=== PATIENT | female | born 1975 | race Caucasian/White ===

== ENCOUNTER 2022-08-31 14:20 | Inpatient (IN) | payer OTHER, SELFPAY ==
[2022-08-31] VITALS (10 sets, daily range): BP systolic 168–214; BP diastolic 103–127; PULSE 58–112; RESP 16–18; TEMP 36.5–36.8; O2SAT 94–98; BMI 35.1
--- NOTE | 2022-08-31 14:59 | EKG12_ITS ---
Test Reason : SOB Blood Pressure : / mmHG Vent. Rate : 108 BPM Atrial Rate : 108 BPM P-R Int : 144 ms QRS Dur : 094 ms QT Int : 380 ms P-R-T Axes : 063 -34 097 degrees QTc Int : 509 ms Sinus tachycardia Possible Left atrial enlargement Left axis deviation Left ventricular hypertrophy ( R in aVL , Enrrique product ) T wave abnormality, consider lateral ischemia vs LVH repolarization abnormality Abnormal ECG Confirmed by ELDON WADDELL, MIKE ([id number]), metropolitan editor KIRA MCCULLOUGH ([id number]) on 09/01/2022 8:30:03 AM Referred By: Confirmed By:MIKE COLÓN MD
--- NOTE | 2022-08-31 15:04 | NURSING ---
NO OLD EKGS
--- NOTE | 2022-08-31 15:19 | EDS_ITS ---
HPI History of Present Illness Chief Complaint: Shortness of Breath Informant: patient Onset/Context/Timing Onset: Days (2-3) Context: gradual and onset Timing: Intermittent Quality: Positive for Dyspnea on exertion (for months; worse now) and Orthopnea Current Severity: Moderate Maximum Severity: Moderate Worsened by: Exertion and Lying flat Relieved by: Rest (and sitting up) Associated Symptoms Negative for cough Chest Pain: Positive for Continuous and Tightness (diffuse, nonpleuritic) Narrative Narrative: Patient has had chest tightness and some dyspnea in the last 2 or 3 days. She mostly notices it when she exerts herself, and when she lies down. She states she has had this multiple times, episodically, in the past, and associates it with allergies. She states that it feels like a tightness and may be some wheezing, however she is concerned now because it is winter and she has never had seasonal allergies in the winter, nor she been exposed to anything that she can think of lately that would cause this. She states also she has had hoarseness for the last several months, she states when that started it seemed to be seasonal allergies in the summertime, but her hoarseness has never resolved. She states she had a cold a couple weeks ago but it felt like just that, she did not seek treatment or testing anywhere. No home testing. She is unvaccinated against COVID and influenza. She denies any fevers or coughing or feeling like she is ill. She denies any recent travel out of the area. She denies any leg swelling or calf pains. No history of DVT or PE. She has no known chronic medical problems, but admits that she does not see a PCP at all and has not for years since she lives out of state in [place]. Additionally, she states she has had a pruritic red spotty rash for the past month. It is better now than it was but is still there and seems like it is taking a long time to go away. She states it was on her trunk, arms, legs, now it is mostly prominent on her abdomen where it is still pruritic but even though it is still on her legs it is not as itchy anymore. She states that she recently bought a used portable washing machine that she has been using in her apartment, and did use a new detergent and wonders if that is what was causing this. 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 [facility] Medical History (Updated 08/31/22 @ 22:[address] Lalo Mancini MD) HTN (hypertension) Medical History no medical history no medical history Home Medications cetirizine 5 mg tablet 10 mg PO DAILY PRN ALLERGIES 08/31/22 [History Last Taken 08/30/22] norgestimate 0.25 mg-ethinyl estradiol 35 mcg tablet 1 tab PO DAILY 08/31/22 [History Last Taken 08/24/22] Allergy/AdvReac Type Severity Reaction Status Date / Time No Known Allergies Allergy Verified 08/31/22 14:20 Surgical History (Updated 08/31/22 @ 17:[address] Stan Gonsalez DO) Hx of cholecystectomy Social History (Updated 08/31/22 @ 17:[address] Stan Gonsalez DO) Smoking Status: Never smoker alcohol intake: current alcohol intake frequency: holidays/special occasions only substance use type: does not use ROS ROS ED Constitutional Constitutional ED: Denies chills or fever(s) Eyes Eyes: Denies blurry vision, change in vision or diplopia ENT ENT ED: Denies ear pain, rhinorrhea or sore throat Cardiovascular Cardiovascular: Reports chest pain and orthopnea; Denies palpitations or racing heartbeat Respiratory/Chest Respiratory/Chest: Reports dyspnea on exertion and orthopnea; Denies cough Gastrointestinal Gastrointestinal: Denies abdominal pain, diarrhea, nausea or vomiting Genitourinary Genitourinary ED: Denies dysuria or hematuria Musculoskeletal Musculoskeletal: Denies back pain or neck pain Integumentary Reports rash; Denies abscess Neurologic Neurologic: Denies headache(s), paresthesias or weakness Psychiatric Psychiatric: Denies anxiety or suicidal thoughts EXAM Physical Exam Const Vital Signs: 08/31/22 14:21 08/31/22 15:19 08/31/22 15:19 Temperature 97.7 F L Temperature Source Temporal Pulse Rate 58 L Respiratory Rate 16 Respiratory Effort Short of Breath Respiratory Depth Normal Respiratory Pattern Normal Blood Pressure 214/127 H Blood Pressure Mean 156 Pulse Ox 98 95 Oxygen Delivery Method Room Air Room Air Room Air 08/31/22 15:15 08/31/22 17:02 08/31/22 17:30 Temperature 97.7 F L Temperature Source Temporal Pulse Rate 99 99 Respiratory Rate 18 18 Respiratory Effort Respiratory Depth Respiratory Pattern Blood Pressure 189/121 H 168/103 H 168/103 H Blood Pressure Mean 143 124 124 Pulse Ox 97 97 Oxygen Delivery Method Room Air Room Air Positive well nourished and well developed General Appearance ED: well developed and NAD HEENT Reports moist mucous membranes normocephalic and atraumatic Eyes PERRL and EOMs intact bilaterally Neck full ROM, no lymphadenopathy, supple, no meningeal signs and no JVD Resp normal respiratory effort and clear to auscultation bilaterally Cardio regular rate, regular rhythm and no murmurs Rate: Negative for tachycardic GI non-tender and non-distended Auscultation: normoactive bowel sounds Palpation: soft Back/Spine no CVA tenderness General Back: other FROM Extremity normal to inspection, full ROM, no calf tenderness and no pedal edema General Extremety ED: Negative for edema, pulses abnormal or tenderness General Extremity: Negative for edema or pulses abnormal Neuro oriented x3, CN's II-XII intact bilaterally and no sensory deficits noted Sensorium / Orientation: awake and alert Motor Exam: strength 5/5 throughout Psych mental status grossly normal Skin no wounds Skin Narrative: Erythematous nontender pruritic maculopapular rash with centimeter or less erythematous lesions, each is discrete and raised with a central scab, mostly present currently on entire abdomen and shins and less on forearms. MDM MDM MDM Narrative Medical decision making narrative: Her blood pressure at triage, 214/127, in addition to the nonspecific lateral EKG changes which in my interpretation are mostly consistent with LVH and strain, are concerning. Therefore, labs including a D-dimer since she could have a post-COVID pulmonary embolus and she had a cold several weeks ago and did not have an evaluation and COVID has been prevalent in this area, were obtained. Her D-dimer is abnormal, after her normal chest x-ray, this led to a CT angiography of the chest, which showed no evidence of a PE. There is a small right-sided pleural effusion noted but not large enough to explain her dyspnea. This could also be cardiac in etiology. Her troponin is slightly elevated nonspecifically, and her BNP is elevated. Her creatinine is slightly abnormal, so I also obtained a urine since we do not have a prior creatinine measurement on her, it shows a small/trace amount of protein, this could indicate a slight amount of kidney injury but I do not know what her baseline creatinine is since she does not have a PCP and has not had labs here before. Given all this I discussed with Dr. Oakley, he is in agreement with admitting the patient for further treatment and work-up. We gave her hydralazine here while we were awaiting work-up, this gradually brought her pressure down to 168/103, she is feeling okay resting here with slight improvement of symptoms. Lab Data Attestation: I reviewed the patient's lab results. Labs: Laboratory Results - last 24 hr 08/31/22 08/31/22 08/31/22 15:14 15:14 15:14 WBC 11.4 H RBC 4.31 Hgb 13.3 Hct 40.0 MCV 92.8 MCH 30.9 MCHC 33.3 RDW Std Deviation 46.6 H RDW Coeff of Brandy 13.8 Plt Count 287 MPV 9.9 Immature Gran % (Auto) 0.300 Neut % (Auto) 74.4 H Lymph % (Auto) 20.1 [place] % (Auto) 4.4 Eos % (Auto) 0.1 Baso % (Auto) 0.7 Absolute Neuts (auto) 8.5 H Absolute Lymphs (auto) 2.28 Nucleated RBC % 0 D-Dimer Quant (PE/DVT) 0.91 H* Sodium 139 Potassium 4.0 Chloride 103 Carbon Dioxide 29.0 Anion Gap 7 BUN 24 H Creatinine 1.14 H Estim Creat Clear Calc 47.73 Est GFR (MDRD) Af Amer 65 Est GFR (MDRD) Non-Af 54 L BUN/Creatinine Ratio 21.1 H Glucose 132 H Calcium 9.4 Troponin I High Sens 140 H* B-Natriuretic Peptide Urine Color Urine Clarity Urine pH Ur Specific [place] Urine Protein Urine Glucose (UA) Urine Ketones Urine Occult Blood Urine Nitrite Urine Bilirubin Urine Urobilinogen Ur Leukocyte Esterase Urine RBC Urine WBC Ur Squamous Epith Cells Urine Bacteria Urine Mucus 08/31/22 08/31/22 15:14 16:36 WBC RBC Hgb Hct MCV MCH MCHC RDW Std Deviation RDW Coeff of Brandy Plt Count MPV Immature Gran % (Auto) Neut % (Auto) Lymph % (Auto) [place] % (Auto) Eos % (Auto) Baso % (Auto) Absolute Neuts (auto) Absolute Lymphs (auto) Nucleated RBC % D-Dimer Quant (PE/DVT) Sodium Potassium Chloride Carbon Dioxide Anion Gap BUN Creatinine Estim Creat Clear Calc Est GFR (MDRD) Af Amer Est GFR (MDRD) Non-Af BUN/Creatinine Ratio Glucose Calcium Troponin I High Sens B-Natriuretic Peptide 1056.3 H Urine Color Straw Urine Clarity Clear Urine pH 7.0 Ur Specific [place] 1.010 Urine Protein 15 H Urine Glucose (UA) Normal Urine Ketones Negative Urine Occult Blood 250 H Urine Nitrite Negative Urine Bilirubin Negative Urine Urobilinogen Normal Ur Leukocyte Esterase 25 H Urine RBC 0-5 SEEN Urine WBC 0-5 SEEN Ur Squamous Epith Cells 0-5 SEEN Urine Bacteria 4+ Urine Mucus 0 SEEN Radiography Chest X-Ray - ED: 2 View, Read by ED Physician, No Acute Disease and No Infiltrates Diagnostic Testing: Clinical Impression(s) from Imaging Studies Chest X-Ray 08/31/22 15:45 IMPRESSION: No radiographic evidence of acute cardiopulmonary disease. Electronically Signed: Alfredo Richmond MD at 16:11 EST , Chest CTA 08/31/22 15:51 IMPRESSION: 1. No evidence of pulmonary embolus. 2. Small right-sided pleural effusion. Electronically Signed: Alfredo Richmond MD at 16:58 EST , Rhythm Strip Rhythm Strip: Sinus Tach Rate: 105 Ectopy: None EKG Initial EKG: Attestation: I personally reviewed and interpreted this EKG as follows: Interpretation: No Acute Injury Pattern, Sinus Tachycardia, Inverted T- Waves (laterally), Non-Specific ST Changes (mostly laterally) and - (LVH by voltage) Prior: No Prior Discharge Plan Dx/Rx/DC Orders Clinical Impression: Hypertensive urgency, Chest pain, Elevated troponin, ST segment changes on electrocardiogram, Pleural effusion on right Disposition Disposition: Acute Care Hospital [facility] Discharge Date/Time: 08/31/22 20:03
[2022-08-31 15:22] LABS: Absolute Lymphocyte Count 2.28 X10^3/uL (0.83-4.51); Absolute Neutrophil Count 8.5 X10^3/uL (2.0-7.7); Basophil# 0.08 X10^3/uL; Basophil% 0.7 % (0-1); Eosinophil# 0.01 X10^3/uL; Eosinophils% 0.1 % (0-5); Hemoglobin 13.3 g/dL (12.0-15.0); Lymphocyte # 2.28 X10^3/ul (0.83-4.51); Lymphocyte % 20.1 % (19-41); Mean Corp Hgb Conc 33.3 g/dL (32-36); Mean Corpuscular Hgb 30.9 pg (27.0-32.0); Mean Corpuscular Volume 92.8 fL (81-99); Mean Platelet Vol. 9.9 fl (6.2-12.0); Monocyte% 4.4 % (0-10); NRBC Flagged by Analyzer 0 % (0-5); Neutrophil # 8.47 X10^3/uL (2.7-7.7); Neutrophil % 74.4 % (47-70); Platelet Count 287 K/mm3 (150-450); RBC Distribution Width CV 13.8 % (11.6-14.6); RBC Distribution Width SD 46.6 fl (35.1-43.9); Red Blood Count 4.31 M/mm3 (4.2-5.4); White Blood Count 11.4 K/mm3 (4.4-11.0)
[2022-08-31] MEDS: hydrALAZINE 20 MG/ML Vial IV (15:23)
[2022-08-31 15:43] LABS: Anion Gap 7 (5-15); BUN 24 mg/dL (7-18); BUN/Creat Ratio 21.1 RATIO (10-20); Calcium,Total 9.4 mg/dL (8.5-10.1); Chloride 103 mmol/L (98-107); Creatinine, Serum 1.14 mg/dL (0.55-1.02); EST Glomerular Filtration Rate 54 mL/min (>60); Est Glom Filt Rate - Afr Amer 65 mL/min (>60); Estimated Creatinine Clearance 47.73 ml/min; Glucose 132 mg/dL (74-106); Sodium Level 139 mmol/L (136-145); Troponin-I HS 140 pg/mL (3.0-54.0)
--- NOTE | 2022-08-31 15:45 | RAD_ITS ---
EXAM: XR CHEST, 2 VIEWS CLINICAL INDICATION: chest pain/sob; no cough/fever TECHNIQUE: Frontal and lateral views of the chest. This report was created using [employer] report generation technology. COMPARISON: None. FINDINGS: LUNGS AND PLEURAL SPACES: Unremarkable. No consolidation or edema. No pneumothorax. No effusion. HEART: Unremarkable. Cardiac silhouette not enlarged. MEDIASTINUM: Central airways and mediastinal contour are unremarkable. BONES/JOINTS: Unremarkable. SOFT TISSUES: Unremarkable. RAD/Chest PA and Lateral IMPRESSION: No radiographic evidence of acute cardiopulmonary disease. Electronically Signed: Alfredo Richmond MD at 16:11 EST ,
[2022-08-31 15:51] LABS: D-Dimer Quantitative (DVT/PE) 0.91 FEU/ug/m (0.27-0.49)
--- NOTE | 2022-08-31 15:51 | CT_ITS ---
EXAM: CT ANGIOGRAPHY CHEST WITHOUT AND WITH INTRAVENOUS CONTRAST CLINICAL INDICATION: cp, sob, elevated d-dimer TECHNIQUE: Helically acquired angiography images were obtained of the chest without and with intravenous contrast. This CT exam was performed using one or more of the following dose reduction techniques: automated exposure control, adjustment of the mA and/or kV according to patient size, and/or use of iterative reconstruction technique. This report was created using [employer] report generation technology. MIP reconstructed images were created and reviewed. CONTRAST: IV 100mL [id number] COMPARISON: None. FINDINGS: PULMONARY ARTERIES: Unremarkable. Normal in caliber. No evidence of pulmonary embolism. AORTA: Unremarkable. Normal in caliber. No evidence of dissection. GREAT VESSELS OF AORTIC ARCH: Unremarkable. Normal in caliber. No evidence of dissection. LUNGS AND PLEURAL SPACES: There is a [id number] right-sided effusion. No mass. No pneumothorax. HEART: Unremarkable. Heart size is normal. No pericardial effusion. No signs of right heart strain, ratio of right ventricle to left ventricle measures less than 1. MEDIASTINUM: Unremarkable. No mediastinal or hilar adenopathy. Esophagus is unremarkable. No hiatal hernia. THYROID: Unremarkable. No thyroid lesions. BONES/JOINTS: See above. CT/CTA Chest W/WO Contrast IMPRESSION: 1. No evidence of pulmonary embolus. 2. Small right-sided pleural effusion. Electronically Signed: Alfredo Richmond MD at 16:58 EST ,
[2022-08-31 16:40] LABS: Mucous, Urine 0 SEEN /hpf (<or=2+)
[2022-08-31 16:45] LABS: Color, Urine Straw (Yellow); Glucose, Dipstick Normal (Normal); Ketone-Dipstick Negative (Negative); Leukocyte Esterase-Dipstick 25 /ul (Negative); Nitrite-Dipstick Negative (Negative); Occult Blood-Urine 250 /ul (Negative); Protein-Dipstick 15 mg/dl (Negative); Urine Bilirubin Dipstick Negative (Negative); Urine Clarity Clear (Clear); Urine Urobilinogen Normal (Normal)
[2022-08-31 17:13] LABS: Bacteria 4+ /hpf (None Seen); Red Blood Cells-Urine 0-5 SEEN /hpf (0-5); Squamous Epithelial Cells - UA 0-5 SEEN /hpf (5-10); White Blood Cells 0-5 SEEN /hpf (0-5)
--- NOTE | 2022-08-31 17:21 | NURSING ---
[facility], CHEST PAIN, ELEVATED TROP
--- NOTE | 2022-08-31 17:44 | HP.PCM.HOS_ITS ---
[facility] - General General Date of Service: 08/31/22 Chief Complaint: shortness of breath HPI Narrative CANDIDA GUZMAN, is a 47 F who presents with shortness of breath. Patient is having dyspnea on exertion over the past couple days. Denies any chest pain or chest pressure. Had been ill about 3 weeks ago and symptoms did resolve but only to get worse over the past few days. So she presented to the emergency room for evaluation. Patient was noted to have a blood pressure of 214/127 in the ED. Patient did receive hydralazine which did improve her blood pressure down to 160/103. Patient has no known history of hypertension though she does not see physicians at all regularly. Troponins were elevated in the 140s. Patient did undergo CTA of the chest that did not show any PE but did show a small right pleural effusion. [facility] Medical History no medical history no medical history Home Medications cetirizine 5 mg tablet 10 mg PO DAILY PRN ALLERGIES 08/31/22 [History Last Taken 08/30/22] norgestimate 0.25 mg-ethinyl estradiol 35 mcg tablet 1 tab PO DAILY 08/31/22 [History Last Taken 08/24/22] Allergy/AdvReac Type Severity Reaction Status Date / Time No Known Allergies Allergy Verified 08/31/22 14:20 adopted Surgical History (Updated 08/31/22 @ 17:[address] Stan Gonsalez DO) Hx of cholecystectomy Social History (Updated 08/31/22 @ 17:[address] Stan Gonsalez DO) Smoking Status: Never smoker alcohol intake: current alcohol intake frequency: holidays/special occasions only substance use type: does not use ROS ROS Narrative Occasional dizziness when she stands up but very sporadic. Patient has had a remote history of vertigo but symptoms are not similar to that. No lower extremity edema. All review of systems were negative except as mentioned above in the history of present illness and the other review of systems. Vital Signs Vital Signs Vital Signs: 08/31/22 14:21 08/31/22 15:19 08/31/22 15:19 Temperature 36.5 C L Temperature Source Temporal Pulse Rate 58 L Respiratory Rate 16 Respiratory Effort Short of Breath Respiratory Depth Normal Respiratory Pattern Normal Blood Pressure 214/127 H Blood Pressure Mean 156 Pulse Ox 98 95 Oxygen Delivery Method Room Air Room Air Room Air 08/31/22 15:15 08/31/22 17:02 08/31/22 17:30 Temperature 36.5 C L Temperature Source Temporal Pulse Rate 99 99 Respiratory Rate 18 18 Respiratory Effort Respiratory Depth Respiratory Pattern Blood Pressure 189/121 H 168/103 H 168/103 H Blood Pressure Mean 143 124 124 Pulse Ox 97 97 Oxygen Delivery Method Room Air Room Air Weight Weight: 87.09 kg Body Mass Index (BMI) 35.1 Physical Exam Const alert and no apparent distress HEENT normocephalic, head/scalp atraumatic, hearing grossly normal bilaterally and moist oral mucous membranes Resp normal respiratory effort, no retractions, no use of accessory muscles and clear to auscultation bilaterally Cardio regular rate, regular rhythm, S1 normal heart sound and S2 normal heart sound GI normal to inspection, nondistended, normoactive bowel sounds, soft to palpation, non-tender and non-distended Extremity normal to inspection Neuro oriented x3 and moves all extremities Psych affect normal Results Lab / Micro Data Attestation: I reviewed the patient's lab results. Result Diagrams: 08/31/22 15:14 08/31/22 15:14 Labs: Laboratory Results - last 24 hr 08/31/22 15:14: WBC 11.4 H, RBC 4.31, Hgb 13.3, Hct 40.0, MCV 92.8, MCH 30.9, MCHC 33.3, RDW Std Deviation 46.6 H, RDW Coeff of Brandy 13.8, Plt Count 287, MPV 9.9, Immature Gran % (Auto) 0.300, Neut % (Auto) 74.4 H, Lymph % (Auto) 20.1, [place] % (Auto) 4.4, Eos % (Auto) 0.1, Baso % (Auto) 0.7, Absolute Neuts (auto) 8.5 H, Absolute Lymphs (auto) 2.28, Nucleated RBC % 0 08/31/22 15:14: D-Dimer Quant (PE/DVT) 0.91 H* 08/31/22 15:14: Sodium 139, Potassium 4.0, Chloride 103, Carbon Dioxide 29.0, Anion Gap 7, BUN 24 H, Creatinine 1.14 H, Estim Creat Clear Calc 47.73, Est GFR (MDRD) Af Amer 65, Est GFR (MDRD) Non-Af 54 L, BUN/Creatinine Ratio 21.1 H, Glucose 132 H, Calcium 9.4, Troponin I High Sens 140 H* 08/31/22 16:36: Urine Color Straw, Urine Clarity Clear, Urine pH 7.0, Ur Specific [place] 1.010, Urine Protein 15 H, Urine Glucose (UA) Normal, Urine Ketones Negative, Urine Occult Blood 250 H, Urine Nitrite Negative, Urine Bilirubin Negative, Urine Urobilinogen Normal, Ur Leukocyte Esterase 25 H, Urine RBC 0-5 SEEN, Urine WBC 0-5 SEEN, Ur Squamous Epith Cells 0-5 SEEN, Urine Bacteria 4+, Urine Mucus 0 SEEN Rhythm Strip Rhythm Strip: Sinus Tach Rate: 105 Ectopy: None EKG Initial EKG: Attestation: I personally reviewed and interpreted this EKG as follows: Prior EKG tracings: available for review EKG Rhythm Intrepretation: Sinus Rhythm (LVH) Radiology Impression Chest X-Ray 08/31/22 15:45 IMPRESSION: No radiographic evidence of acute cardiopulmonary disease. Electronically Signed: Alfredo Richmond MD at 16:11 EST , Chest CTA 08/31/22 15:51 IMPRESSION: 1. No evidence of pulmonary embolus. 2. Small right-sided pleural effusion. Electronically Signed: Alfredo Richmond MD at 16:58 EST , Assessment & Plan Assessment/Plan (1) Hypertensive urgency: PLAN: Suspect patient has had longstanding uncontrolled blood pressure. Patient does not see physicians regularly so its only suspected Patient did receive IV hydralazine in the ED. Will initiate HCTZ and lisinopril. We will check a test before initiating lisinopril. (2) Elevated troponin: PLAN: Suspect cardiac strain due to the hypertensive urgency Cycle troponins If troponins continue to trend upwards, then would recommend anticoagulation Consult cardiology Check echocardiogram Cannot rule out the patient requiring additional cardiac evaluation including cardiac catheterization at this time. (3) ST segment changes on electrocardiogram: PLAN: Most likely due to LVH Check echo (4) Pleural effusion: PLAN: Most likely cardiac in nature Doubt infectious or cancerous No need for thoracentesis at this time but should be followed up as outpatient PLAN: Plan VTE prophylaxis with subcu Lovenox. If patient does require anticoagulation with discontinue the subcu Lovenox Charges/Coding Visit Charges Inpatient E&M: 48420 Init Hosp L3
--- NOTE | 2022-08-31 18:12 | CON.PCM.CA_ITS ---
Assessment & Plan Assessment/Plan (1) Elevated troponin: PLAN: The patient does have an elevated high-sensitivity troponin I level. This may be secondary to her hypertensive urgency. At the present time she will need continued follow-up. This will include enzyme follow-up, cardiac rhythm monitoring, and ECG follow-up. She will also have an echocardiogram to assess her left ventricular wall thickness, wall motion, and systolic function. She may, depending upon her clinical course, eventually need additional noninvasive or invasive studies to further evaluate her cardiovascular status. In the interim she will continue medical therapy as deemed appropriate. (2) Hypertensive urgency: PLAN: She has been found to have evidence of a hypertensive urgency. It is unclear as to how long her blood pressure has been elevated. Her hypertension may be the etiology of her symptoms and her objective findings. At the present time she will need continued medical management. (3) Pleural effusion: PLAN: She does have a pleural effusion. This may be secondary to the effects of hypertension on her cardiopulmonary system. She will need to continue evaluation care as noted above. It is reasonable to continue medical therapy including consideration for diuretic therapy. Addt'l Comments The patient's case has been discussed and reviewed with the patient, Dr. Mancini of the [facility] emergency department staff, and Dr. Gonsalez of the [facility] staff. This note was generated using a voice recognition system and there may be incorrect words, spelling or punctuation that were not noted when reviewing the office note prior to saving. HPI Consult Data Date of Consult: 08/31/22 HPI Narrative HPI Narrative: CANDIDA GUZMAN, is a 47 year old white female who presents for [facility] emergency department cardiovascular consultation with respect to hypertensive urgency, shortness of breath/dyspnea, abnormal cardiac enzymes, and an abnormal ECG. The patient states that during her , approximately 13 years ago, she was told her blood pressure was elevated. Following that, during follow-up visits, she states her blood pressure apparently was improved but may not have normalized but she did not require medical therapy. She states she has not followed with a physician for potentially 6 years. She does not believe she has had her blood pressure checked during that time. Thus she does not know how long her blood pressure has been elevated. She states that she felt as if she was having one of her allergy attacks . She notes when she has these events she feels that she cannot breathe comfortably. She notes that she has not been unable to lie back/supine and breathe comfortably. She also has felt like she is full around the abdomen. She has had no complaints of chest discomfort other than that associated with her sensation of dyspnea and/or her sensation of fullness in her abdomen. She denies any ongoing lower extremity peripheral pitting edema. There is been no palpitations, near-syncope, or syncope. Based upon her symptoms she presented to the emergency department for evaluation. She was noted to be markedly hypertensive. She had abnormal high- sensitivity troponin I levels. She had an ECG that demonstrated sinus rhythm with voltage criteria for LVH and ST and T wave changes potentially compatible with LVH repolarization abnormality. She underwent a chest x-ray and a chest CT scan based upon concern of the possibility of thromboembolic disease. The report states that she had no great vessel disease and no thromboembolic disease, however, on her chest CT scan she did have a right-sided pleural effusion. She has not had previous cardiovascular studies in the past. She states approximately April to May she felt as if she had one of her allergic events. She states since that time her voice has not been the same. She states that she not tested for COVID when her voice changed. She is unaware of any other medical diagnoses. She states she has not been on any prescription medication at home. [facility] Medical History no medical history Home Medications cetirizine 5 mg tablet 10 mg PO DAILY PRN ALLERGIES 08/31/22 [History Last Taken 08/30/22] norgestimate 0.25 mg-ethinyl estradiol 35 mcg tablet 1 tab PO DAILY 08/31/22 [History Last Taken 08/24/22] Allergy/AdvReac Type Severity Reaction Status Date / Time No Known Allergies Allergy Verified 08/31/22 14:20 Family History adopted Surgical History (Updated 08/31/22 @ 17:[address] Stan Gonsalez DO) Hx of cholecystectomy Social History (Updated 08/31/22 @ 17:[address] Stan Gonsalez DO) Smoking Status: Never smoker alcohol intake: current alcohol intake frequency: holidays/special occasions only substance use type: does not use ROS Constitutional Constitutional: Reports as per HPI Eyes Eyes: Reports as per HPI ENT HEENT: Reports as per HPI Cardiovascular Cardiovascular: Reports dyspnea Respiratory/Chest Respiratory/Chest: Reports dyspnea Gastrointestinal Gastrointestinal: Reports as per HPI Genitourinary Genitourinary: Reports as per HPI Musculoskeletal Musculoskeletal: Reports as per HPI Integumentary Integumentary: Reports as per HPI Neurologic Neurologic: Reports as per HPI Psychiatric Psychiatric: Reports as per HPI Physical Exam Const alert, oriented x3 and no apparent distress Orientation / Consciousness: awake HEENT normocephalic, head/scalp atraumatic, hearing grossly normal bilaterally and moist oral mucous membranes Eyes PERRL, EOMs intact bilaterally, conjunctivae normal and no scleral icterus Neck full ROM, supple and no JVD Carotids: normal carotid upstroke Resp normal respiratory effort Auscultation: breath sounds absent right Cardio regular rhythm, S1 normal heart sound and S2 normal heart sound Rate: tachycardic GI normal to inspection, nondistended, normoactive bowel sounds Extremity no pedal edema Skin no rashes or lesions noted Psych mental status grossly normal Risk Stratification Risk Stratification Applicable: Yes Age >/= 65: No >/= 3 CAD Risk Factors (HTN, HLD, DM, family hx of CAD, or current smoker): No Aspirin Use in the Past 7 Days: No Severe Angina (>/= episodes in 24 hours): No EKG ST Changes >/= 0.5mm: No Positive Cardiac Marker: Yes JACOB Risk Stratification Score: 1 JACOB % Risk: 5% Risk Procedure Criteria Type of Procedure Procedure Type: Elective Elective Risks - COVID COVID Risk Discussion: The surgeon/proceduralist and patient have discussed in detail the risk of exposure to and/or potential harm posed by the COVID-19 virus with having a surgery/procedure at this time versus the risk of delaying the surgery/procedure. It is not possible to know either the risk of delaying the surgery or procedure or chance of getting an infection with perfect accuracy, but a joint decision was made between the patient and the surgeon/proceduralist to proceed at this time with the scheduled surgery/procedure as indicated on the consent form. Objective Data Vital Signs: Vital Signs Temp Pulse Resp BP Pulse Ox O2 Del Method 97.7 F L 99 18 168/103 H 97 Room Air 08/31/22 17:30 08/31/22 17:30 08/31/22 17:30 08/31/22 17:30 08/31/22 17:30 08/31/22 17:30 Oxygen Delivery Method Room Air Weight: 192 lb Body Mass Index (BMI) 35.1 Lab / Micro Data Result Diagrams: 08/31/22 15:14 08/31/22 15:14 Labs: Laboratory Results - last 24 hr 08/31/22 15:14: WBC 11.4 H, RBC 4.31, Hgb 13.3, Hct 40.0, MCV 92.8, MCH 30.9, MCHC 33.3, RDW Std Deviation 46.6 H, RDW Coeff of Brandy 13.8, Plt Count 287, MPV 9.9, Immature Gran % (Auto) 0.300, Neut % (Auto) 74.4 H, Lymph % (Auto) 20.1, [place] % (Auto) 4.4, Eos % (Auto) 0.1, Baso % (Auto) 0.7, Absolute Neuts (auto) 8.5 H, Absolute Lymphs (auto) 2.28, Nucleated RBC % 0 08/31/22 15:14: D-Dimer Quant (PE/DVT) 0.91 H* 08/31/22 15:14: Sodium 139, Potassium 4.0, Chloride 103, Carbon Dioxide 29.0, Anion Gap 7, BUN 24 H, Creatinine 1.14 H, Estim Creat Clear Calc 47.73, Est GFR (MDRD) Af Amer 65, Est GFR (MDRD) Non-Af 54 L, BUN/Creatinine Ratio 21.1 H, Glucose 132 H, Calcium 9.4, Troponin I High Sens 140 H* 08/31/22 16:36: Urine Color Straw, Urine Clarity Clear, Urine pH 7.0, Ur Specific [place] 1.010, Urine Protein 15 H, Urine Glucose (UA) Normal, Urine Ketones Negative, Urine Occult Blood 250 H, Urine Nitrite Negative, Urine Bilirubin Negative, Urine Urobilinogen Normal, Ur Leukocyte Esterase 25 H, Urine RBC 0-5 SEEN, Urine WBC 0-5 SEEN, Ur Squamous Epith Cells 0-5 SEEN, Urine Bacteria 4+, Urine Mucus 0 SEEN Rhythm Strip Rhythm Strip: Sinus Tach Rate: 105 Ectopy: None Cardiology Labs/Tests 08/31/22 15:14: WBC 11.4 H, RBC 4.31, Hgb 13.3, Hct 40.0, MCV 92.8, MCH 30.9, M CHC 33.3, Plt Count 287, MPV 9.9, Immature Gran % (Auto) 0.300, Neut % (Auto) 74.4 H, Lymph % (Auto) 20.1, [place] % (Auto) 4.4, Eos % (Auto) 0.1, Baso % (Auto) 0.7, Absolute Neuts (auto) 8.5 H, Nucleated RBC % 0 08/31/22 15:14: D-Dimer Quant (PE/DVT) 0.91 H* 08/31/22 15:14: Sodium 139, Potassium 4.0, Chloride 103, Carbon Dioxide 29.0, Anion Gap 7, BUN 24 H, Creatinine 1.14 H, Est GFR (MDRD) Af Amer 65, Est GFR (MDRD) Non-Af 54 L, BUN/Creatinine Ratio 21.1 H, Glucose 132 H, Calcium 9.4 08/31/22 16:36: Urine Color Straw, Urine Clarity Clear, Urine pH 7.0, Ur Specific [place] 1.010, Urine Protein 15 H, Urine Glucose (UA) Normal, Urine Ketones Negative, Urine Occult Blood 250 H, Urine Nitrite Negative, Urine Bilirubin Negative, Urine Urobilinogen Normal, Ur Leukocyte Esterase 25 H, Urine RBC 0-5 SEEN, Urine WBC 0-5 SEEN Rhythm: Sinus rhythm EKG: As noted above Radiography Diagnostic Testing: Radiology Impression Chest X-Ray 08/31/22 15:45 IMPRESSION: No radiographic evidence of acute cardiopulmonary disease. Electronically Signed: Alfredo Richmond MD at 16:11 EST , Chest CTA 08/31/22 15:51 IMPRESSION: 1. No evidence of pulmonary embolus. 2. Small right-sided pleural effusion. Electronically Signed: Alfredo Richmond MD at 16:58 EST ,
--- NOTE | 2022-08-31 18:20 | ECHOCS_ITS ---
Reason For Study: HTN Procedure This was a 2D Doppler, Color Flow transthoracic echocardiogram. The study was technically difficult. Contrast injection was performed. Exam performed portable in patient room. Left Ventricle Severely dilated left ventricle. Severe global left ventricular systolic dysfunction. The estimated ejection fraction is 30 %. Diastolic function is indeterminate. Anterio-Basal: Hypokinetic. Lateral- Basal: Hypokinetic. Posterior-Basal: Hypokinetic. Infero-Basal: Hypokinetic. Basal inferoseptal: Hypokinetic. Basal anteroseptal: Hypokinetic. Mid-Anterior : Hypokinetic. Mid-Lateral : Hypokinetic. Mid-Posterior: Hypokinetic. Mid-Inferior: Hypokinetic. Mid-inferoseptal : Hypokinetic. Mid- anteroseptal : Hypokinetic. Anterior [place] : Mildly hypokinetic. Inferior [place] : Mildly hypokinetic. Lateral [place] : Mildly hypokinetic. Septal [place] : Mildly hypokinetic. Right Ventricle Normal RV size. Normal systolic function. Atria The left atrium is mildly enlarged. Normal right atrium. No doppler evidence for ASD. Mitral Valve There is no mitral annular calcification. Mild diffuse mitral valve thickening. Mild papillary muscle dysfunction of the mitral valve. Moderate (2+) mitral valve insufficiency. Tricuspid Valve Normal tricuspid valve. Trivial tricuspid valve insufficiency. Unable to estimate RV systolic pressure due to insufficient tricuspid regurgitant envelope. Aortic Valve Trisinus/trileaflet aortic valve. Normal aortic valve. Pulmonic Valve The pulmonic valve is not well visualized. Great Vessels Normal sized aortic root. Pericardium/Pleural Trivial pericardial effusion. There are no echocardiographic indications of cardiac tamponade. Medication Diluted definity 2ml given slow IV push to enhance endocardial definition. MMode/2D Measurements & Calculations LVIDd: 6.8 cm IVSd: 1.2 cm Ao root diam: 3.1 cm LVIDs: 5.9 cm LVPWd: 1.1 cm LA dimension: 4.3 cm RVDd: 3.5 cm FS: 12.5 % LAV(MOD-bp): 52.9 ml LVAd ap4: 48.1 cm2 LVAd ap2: 46.4 cm2 LAV(MOD-bp) Indexed: 28.2 ml/m2 LVLd ap4: 8.8 cm LVLd ap2: 8.9 cm LAV(MOD-sp2): 54.4 ml EDV(MOD-sp4): 216.6 ml EDV(MOD-sp2): 202.4 ml LAV(MOD-sp4): 49.4 ml EDV(sp4-el): 223.6 ml EDV(sp2-el): 204.5 ml LVAs ap4: 37.0 cm2 LVAs ap2: 38.2 cm2 LVLs ap4: 7.9 cm LVLs ap2: 8.6 cm ESV(MOD-sp4): 141.6 ml ESV(MOD-sp2): 145.2 ml ESV(sp4-el): 146.4 ml ESV(sp2-el): 143.5 ml EF(MOD-sp4): 34.6 % EF(MOD-sp2): 28.3 % EF(sp4-el): 34.5 % SV(MOD-sp4): 75.0 ml SV(MOD-sp2): 57.3 ml SV(sp4-el): 77.1 ml LA A4 area: 18.1 cm2 RA A4 area: 11.2 cm2 Time Measurements MV dec time: 0.21 sec Doppler Measurements & Calculations MV E max clark: 86.6 cm/sec Lat Peak E' Clark: 3.3 cm/sec Med Peak E' Clark: 3.7 cm/sec MV A max clark: 72.1 cm/sec E/E' lat: 26.4 E/E' med: 23.4 MV E/A: 1.2 MV V2 max: 120.4 cm/sec MV P1/2t max clark: 121.4 cm/sec Ao V2 max: 148.9 cm/sec MV max P.8 mmHg MV P1/2t: 85.2 msec Ao max P.9 mmHg MV V2 mean: 63.1 cm/sec Ao V2 mean: 101.1 cm/sec MV mean P.9 mmHg MV dec slope: 417.2 cm/sec2 Ao mean P.8 mmHg MV V2 VTI: 31.5 cm MVA(P1/2t): 2.6 cm2 Ao V2 VTI: 25.8 cm AV (velocity ratio): 0.80 LV V1 max: 124.3 cm/sec PA V2 max: 99.9 cm/sec LV V1 max P.2 mmHg LV V1 mean P.6 mmHg LV V1 mean: 88.9 cm/sec LV V1 VTI: 20.7 cm ECHO/Echo Complete W/ Contrast Interpretation Summary The study was technically difficult. Contrast injection was performed. Severely dilated left ventricle. Severe global left ventricular systolic dysfunction. The estimated ejection fraction is 30 %. The left atrium is mildly enlarged. Mild diffuse mitral valve thickening. Mild papillary muscle dysfunction of the mitral valve. Moderate (2+) mitral valve insufficiency. Trivial tricuspid valve insufficiency. Trivial pericardial effusion. There are no echocardiographic indications of cardiac tamponade. Diastolic function is indeterminate. Comment: 2D echocardiographic images of the left ventricle suggest global hypok inesis with the LV apex potentially compatible with an element of apical sparing with only mild hy pokinesis suggestive of but not diagnostic of a diagnosis which may include amyloidosis. Ordering Physician: Lonnie Oakley Referring Physician: No PCP Performed By: Rhys Bolton RCS
[2022-08-31 18:23] LABS: BNP,B-Type NATRIURETIC PEPTIDE 1056.3 pg/mL (0-100)
[2022-08-31 18:38] LABS: Internal QC Validated? YES +Cl - CLEAR BKGD; Pregnancy, Serum, hCG Quali. NEGATIVE Negative
--- NOTE | 2022-08-31 19:45 | EKG12_ITS ---
Test Reason : AM EKG Blood Pressure : / mmHG Vent. Rate : 077 BPM Atrial Rate : 077 BPM P-R Int : 162 ms QRS Dur : 096 ms QT Int : 494 ms P-R-T Axes : 032 -37 266 degrees QTc Int : 559 ms Normal sinus rhythm Left axis deviation Voltage criteria for left ventricular hypertrophy ( R in aVL , Sokolow-Clark , Enrrique product ) T wave abnormality, consider inferior ischemia T wave abnormality, consider anterolateral ischemia Prolonged QT Abnormal ECG Confirmed by ELDON WADDELL, MIKE ([id number]), editor producer KIRA MCCULLOUGH ([id number]) on 09/08/2022 8:14:45 AM Referred By: DR SMITH Confirmed By:MIKE COLÓN MD
[2022-08-31] MEDS: Aspirin 325 MG Tablet PO (19:49)
[2022-08-31] MEDS: Furosemide 40 MG/4 ML Vial IV (19:49)
[2022-08-31 20:35] LABS: Troponin-I HS 155 pg/mL (3.0-54.0)
[2022-08-31] MEDS: Lisinopril 10 MG Tablet PO (20:40)
[2022-08-31] MEDS: hydroCHLOROthiazide 25 MG Tablet PO (20:40)
[2022-08-31] MEDS: Carvedilol 3.125 MG TABLET PO (20:40)
[2022-08-31] MEDS: hydrALAZINE 20 MG/ML Vial 10 MG IV (20:44)
[2022-08-31] MEDS: Acetaminophen 325 MG Tablet 650 MG PO (20:50)
[2022-09-01] VITALS (10 sets, daily range): BP systolic 107–154; BP diastolic 71–90; PULSE 72–101; RESP 16–18; TEMP 36.5–36.8; O2SAT 92–96
[2022-09-01 03:36] LABS: Troponin-I HS 178 pg/mL (3.0-54.0)
[2022-09-01 03:50] LABS: AST(SGOT) 24 U/L (15-37); Alanine Aminotransfer ALT/SGPT 43 U/L (13-56); Albumin, Serum 2.8 g/dL (3.2-5.0); Alkaline Phosphatase 86 U/L (45-117); Bilirubin, Direct 0.16 mg/dL (0.00-0.30); Cholesterol 228 mg/dL (200); Globulin 3.8 g/dL (2.2-4.2); High Density Lipoprotein 38 mg/dL; Protein, Total 6.6 g/dL (6.4-8.2); Thyroid Stim Hormone (TSH) 1.32 uIU/mL (0.358-3.74); Triglycerides 229 mg/dL; Very Low Density Lipoprotein 46 mg/dL (5-40)
--- NOTE | 2022-09-01 05:55 | EKG12_ITS ---
Test Reason : CP ADMIT Blood Pressure : / mmHG Vent. Rate : 089 BPM Atrial Rate : 089 BPM P-R Int : 144 ms QRS Dur : 092 ms QT Int : 444 ms P-R-T Axes : 052 -39 214 degrees QTc Int : 540 ms Normal sinus rhythm Left axis deviation Left ventricular hypertrophy ( R in aVL , Sokolow-Clark , Enrrique product , Romhilt-Sol ) ST & T wave abnormality, consider inferior ischemia ST & T wave abnormality, consider anterolateral ischemia Prolonged QT Abnormal ECG Confirmed by ELDON WADDELL, MIKE ([id number]), communications editor KIRA MCCULLOUGH ([id number]) on 09/02/2022 7:41:02 AM Referred By: LUIS Confirmed By:MIKE COLÓN MD
--- NOTE | 2022-09-01 09:04 | PCM.PN.HOSP ---
Subjective Subjective Doing well, no issues overnight. She is maintaining her oxygen saturations on room air Objective Data Objective Data Vital Signs: Vital Signs Temp Pulse Resp BP Pulse Ox O2 Del Method 97.9 F 73 16 140/85 H 94 Room Air 09/01/22 08:25 09/01/22 08:25 09/01/22 08:25 09/01/22 08:25 09/01/22 08:25 09/01/22 08:25 Oxygen Delivery Method Room Air Weight: 192 lb Body Mass Index (BMI) 35.1 Lab / Micro Data Result Diagrams: 08/31/22 15:14 08/31/22 15:14 Labs: Laboratory Results - last 24 hr 08/31/22 15:14: WBC 11.4 H, RBC 4.31, Hgb 13.3, Hct 40.0, MCV 92.8, MCH 30.9, MCHC 33.3, RDW Std Deviation 46.6 H, RDW Coeff of Brandy 13.8, Plt Count 287, MPV 9.9, Immature Gran % (Auto) 0.300, Neut % (Auto) 74.4 H, Lymph % (Auto) 20.1, [place] % (Auto) 4.4, Eos % (Auto) 0.1, Baso % (Auto) 0.7, Absolute Neuts (auto) 8.5 H, Absolute Lymphs (auto) 2.28, Nucleated RBC % 0 08/31/22 15:14: D-Dimer Quant (PE/DVT) 0.91 H* 08/31/22 15:14: Sodium 139, Potassium 4.0, Chloride 103, Carbon Dioxide 29.0, Anion Gap 7, BUN 24 H, Creatinine 1.14 H, Estim Creat Clear Calc 47.73, Est GFR (MDRD) Af Amer 65, Est GFR (MDRD) Non-Af 54 L, BUN/Creatinine Ratio 21.1 H, Glucose 132 H, Calcium 9.4, Troponin I High Sens 140 H* 08/31/22 15:14: B-Natriuretic Peptide 1056.3 H 08/31/22 16:36: Urine Color Straw, Urine Clarity Clear, Urine pH 7.0, Ur Specific [place] 1.010, Urine Protein 15 H, Urine Glucose (UA) Normal, Urine Ketones Negative, Urine Occult Blood 250 H, Urine Nitrite Negative, Urine Bilirubin Negative, Urine Urobilinogen Normal, Ur Leukocyte Esterase 25 H, Urine RBC 0-5 SEEN, Urine WBC 0-5 SEEN, Ur Squamous Epith Cells 0-5 SEEN, Urine Bacteria 4+, Urine Mucus 0 SEEN 08/31/22 17:47: Serum , Qual NEGATIVE 08/31/22 19:50: Troponin I High Sens 155 H* 09/01/22 03:00: Total Bilirubin 0.50, Direct Bilirubin 0.16, AST 24, ALT 43, Alkaline Phosphatase 86, Total Protein 6.6, Albumin 2.8 L, Globulin 3.8, Triglycerides 229 H, Cholesterol 228 H, LDL Cholesterol 144 H, VLDL Cholesterol 46 H, HDL Cholesterol 38 L, TSH 1.32 09/01/22 03:00: Troponin I High Sens 178 H* Micro: Microbiology 08/31/22 19:55 Nasal Secretion SARS-CoV-2 Antigen (Rapid) - Final Radiography Diagnostic Testing: Radiology Impression Chest X-Ray 08/31/22 15:45 IMPRESSION: No radiographic evidence of acute cardiopulmonary disease. Electronically Signed: Alfredo Richmond MD at 16:11 EST , Chest CTA 08/31/22 15:51 IMPRESSION: 1. No evidence of pulmonary embolus. 2. Small right-sided pleural effusion. Electronically Signed: Alfredo Richmond MD at 16:58 EST , Rhythm Strip Rhythm Strip: Sinus Tach Rate: 105 Ectopy: None Physical Exam Narrative General: Alert, Oriented x3, Cooperative, No apparent distress HEENT: Atraumatic, PERRLA, EOMI, Normocephalic Oral: Moist Mucosa Neck: Supple, No JVD Lungs: Clear to auscultation, Normal air movement, No rhonchi, No wheeze, No rales Cardiovascular: Regular rate, Regular Rhythm, Normal S1, Normal S2, No murmurs Abdomen: Soft, Non Tender, Non-Distended, No Hepato-splenomegaly Extremities: No edema, Capillary Refill Less than 3 Seconds Skin: No rashes, No breakdown Musculoskeletal: No Tenderness to Palpation of Joints or Extremities Neurological: Cranial nerves II-XII grossly intact, Motor Exam 5/5 strength throughout, Sensory exam intact to light touch and pain Psych/Mental Status: Normal Affect, Appropriate Assessment & Plan Assessment/Plan (1) Hypertensive urgency: PLAN: Suspect patient has had longstanding uncontrolled blood pressure. Patient does not see physicians regularly the week Blood pressures appear more controlled with the Coreg as well as hydrochlorothiazide, lisinopril, Norvasc test was negative (2) Elevated troponin: PLAN: Suspect cardiac strain due to the hypertensive urgency Consult cardiology Check echocardiogram, result of the echo will dictate further work-up (3) ST segment changes on electrocardiogram: PLAN: Most likely due to LVH Check echo (4) Pleural effusion: PLAN: Most likely cardiac in nature Doubt infectious or cancerous No need for thoracentesis at this time but should be followed up as outpatient PLAN: Plan DVT: Lovenox Charges/Coding Visit Charges Inpatient E&M: 65612 Subs Hosp L2
[2022-09-01] MEDS: Aspirin E.C. 81 MG Tablet PO (10:36)
[2022-09-01] MEDS: Lisinopril 20 MG Tablet PO (10:36)
[2022-09-01] MEDS: Carvedilol 3.125 MG TABLET PO ×2 (10:36→21:21)
[2022-09-01] MEDS: hydroCHLOROthiazide 25 MG Tablet PO (10:36)
[2022-09-01] MEDS: amLODIPine 5 MG Tablet PO (10:38)
--- NOTE | 2022-09-01 13:45 | CASEMGMT ---
YVONNE WYNN Assessment: Face to Face with pt for initial transition planning/care coordination assessment. YVONNE WYNN introduced self and role at [facility], pt voices understanding and consents to assessment. Pt in bed. Appears to be in no distress. Pt is A/O x4 and answers all questions appropriately at this time. Care providers, pharmacy, and demographics verified/updated. Admitting Dx: Elevated Troponins, HTN Urgency. PCP: No PCP. Healthcare Provider brochure provided. Specialists: None. Preferred Pharmacy: [facility]. Insurance: [employer]. Prescription Benefit: Yes. LW/HPOA: Pt denies having a LW/DPOA and denies need for info regarding AD. LNOK: None listed. Pt declines wanting anyone listed. Living Arrangements: Pt lives alone in an apt. No issues navigating stairs. Pt reports being I in ADLs. Transportation: Pt is able to drive but doesn't have a car. Pt has a friend that can assist if needed. DME/HHC/SNF: No DME. No HHC in the past or SNF stays. Pt states no concerns with going home at time of dc. Pt states no further concerns/needs. CM to follow. Advised pt to ask CM if any further question/concerns/needs arise, voices understanding. Pt pleasant but did not elaborate on many answers. Pt Goal: Home. Plan:? TBD.
--- NOTE | 2022-09-01 14:13 | PCM.PN.CARD ---
Subjective Subjective The patient is awake and alert. She states she does feel better today. She believes that her breathing has improved. She believes that she does not feel as full as she did yesterday. Objective Data Vital Signs: Vital Signs Temp Pulse Resp BP Pulse Ox O2 Del Method 97.9 F 78 16 146/86 H 94 Room Air 09/01/22 10:33 09/01/22 10:33 09/01/22 10:33 09/01/22 10:33 09/01/22 10:33 09/01/22 10:33 Oxygen Delivery Method Room Air Weight: 192 lb Body Mass Index (BMI) 35.1 Lab / Micro Data Result Diagrams: 08/31/22 15:14 08/31/22 15:14 Labs: Laboratory Results - last 24 hr 08/31/22 15:14: WBC 11.4 H, RBC 4.31, Hgb 13.3, Hct 40.0, MCV 92.8, MCH 30.9, MCHC 33.3, RDW Std Deviation 46.6 H, RDW Coeff of Brandy 13.8, Plt Count 287, MPV 9.9, Immature Gran % (Auto) 0.300, Neut % (Auto) 74.4 H, Lymph % (Auto) 20.1, [place] % (Auto) 4.4, Eos % (Auto) 0.1, Baso % (Auto) 0.7, Absolute Neuts (auto) 8.5 H, Absolute Lymphs (auto) 2.28, Nucleated RBC % 0 08/31/22 15:14: D-Dimer Quant (PE/DVT) 0.91 H* 08/31/22 15:14: Sodium 139, Potassium 4.0, Chloride 103, Carbon Dioxide 29.0, Anion Gap 7, BUN 24 H, Creatinine 1.14 H, Estim Creat Clear Calc 47.73, Est GFR (MDRD) Af Amer 65, Est GFR (MDRD) Non-Af 54 L, BUN/Creatinine Ratio 21.1 H, Glucose 132 H, Calcium 9.4, Troponin I High Sens 140 H* 08/31/22 15:14: B-Natriuretic Peptide 1056.3 H 08/31/22 16:36: Urine Color Straw, Urine Clarity Clear, Urine pH 7.0, Ur Specific [place] 1.010, Urine Protein 15 H, Urine Glucose (UA) Normal, Urine Ketones Negative, Urine Occult Blood 250 H, Urine Nitrite Negative, Urine Bilirubin Negative, Urine Urobilinogen Normal, Ur Leukocyte Esterase 25 H, Urine RBC 0-5 SEEN, Urine WBC 0-5 SEEN, Ur Squamous Epith Cells 0-5 SEEN, Urine Bacteria 4+, Urine Mucus 0 SEEN 08/31/22 17:47: Serum , Qual NEGATIVE 08/31/22 19:50: Troponin I High Sens 155 H* 09/01/22 03:00: Total Bilirubin 0.50, Direct Bilirubin 0.16, AST 24, ALT 43, Alkaline Phosphatase 86, Total Protein 6.6, Albumin 2.8 L, Globulin 3.8, Triglycerides 229 H, Cholesterol 228 H, LDL Cholesterol 144 H, VLDL Cholesterol 46 H, HDL Cholesterol 38 L, TSH 1.32 09/01/22 03:00: Troponin I High Sens 178 H* Micro: Microbiology 09/01/22 00:15 Mucosa - Nasopharyngeal Respiratory Panel (PCR) - Final 08/31/22 19:55 Nasal Secretion SARS-CoV-2 Antigen (Rapid) - Final Rhythm Strip Rhythm Strip: Sinus Tach Rate: 105 Ectopy: None Cardiology Labs/Tests 08/31/22 15:14: WBC 11.4 H, RBC 4.31, Hgb 13.3, Hct 40.0, MCV 92.8, MCH 30.9, MCHC 33.3, Plt Count 287, MPV 9.9, Immature Gran % (Auto) 0.300, Neut % (Auto) 74.4 H, Lymph % (Auto) 20.1, [place] % (Auto) 4.4, Eos % (Auto) 0.1, Baso % (Auto) 0.7, Absolute Neuts (auto) 8.5 H, Nucleated RBC % 0 08/31/22 15:14: D-Dimer Quant (PE/DVT) 0.91 H* 08/31/22 15:14: Sodium 139, Potassium 4.0, Chloride 103, Carbon Dioxide 29.0, Anion Gap 7, BUN 24 H, Creatinine 1.14 H, Est GFR (MDRD) Af Amer 65, Est GFR (MDRD) Non-Af 54 L, BUN/Creatinine Ratio 21.1 H, Glucose 132 H, Calcium 9.4 08/31/22 15:14: B-Natriuretic Peptide 1056.3 H 08/31/22 16:36: Urine Color Straw, Urine Clarity Clear, Urine pH 7.0, Ur Specific [place] 1.010, Urine Protein 15 H, Urine Glucose (UA) Normal, Urine Ketones Negative, Urine Occult Blood 250 H, Urine Nitrite Negative, Urine Bilirubin Negative, Urine Urobilinogen Normal, Ur Leukocyte Esterase 25 H, Urine RBC 0-5 SEEN, Urine WBC 0-5 SEEN 09/01/22 03:00: Total Bilirubin 0.50, Direct Bilirubin 0.16, Triglycerides 229 H, Cholesterol 228 H, LDL Cholesterol 144 H, VLDL Cholesterol 46 H, HDL Cholesterol 38 L Rhythm: Sinus rhythm; motion artifact EKG: Sinus rhythm; T wave abnormality ([id number]): Consider myocardial ischemia ECHO: Please see below Radiography Diagnostic Testing: Radiology Impression Chest X-Ray 08/31/22 15:45 IMPRESSION: No radiographic evidence of acute cardiopulmonary disease. Electronically Signed: Alfredo Richmond MD at 16:11 EST , Chest CTA 08/31/22 15:51 IMPRESSION: 1. No evidence of pulmonary embolus. 2. Small right-sided pleural effusion. Electronically Signed: Alfredo Richmond MD at 16:58 EST , Echocardiogram 08/31/22 18:20 Interpretation Summary The study was technically difficult. Contrast injection was performed. Severely dilated left ventricle. Severe global left ventricular systolic dysfunction. The estimated ejection fraction is 30 %. The left atrium is mildly enlarged. Mild diffuse mitral valve thickening. Mild papillary muscle dysfunction of the mitral valve. Moderate (2+) mitral valve insufficiency. Trivial tricuspid valve insufficiency. Trivial pericardial effusion. There are no echocardiographic indications of cardiac tamponade. Diastolic function is indeterminate. Comment: 2D echocardiographic images of the left ventricle suggest global hypokinesis with the LV apex potentially compatible with an element of apical sparing with only mild hypokinesis suggestive of but not diagnostic of a diagnosis which may include amyloidosis. Ordering Physician: Lonnie Oakley Referring Physician: No PCP Performed By: Rhys Bolton RCS Physical Exam Const alert, oriented x3 and no apparent distress Orientation / Consciousness: awake HEENT normocephalic, head/scalp atraumatic, hearing grossly normal bilaterally and moist oral mucous membranes Eyes PERRL, EOMs intact bilaterally, conjunctivae normal and no scleral icterus Neck full ROM, supple and no JVD Carotids: normal carotid upstroke Resp normal respiratory effort Auscultation: breath sounds absent right (Improved compared to yesterday) Cardio regular rate, regular rhythm, S1 normal heart sound and S2 normal heart sound GI normal to inspection, nondistended, normoactive bowel sounds Extremity no pedal edema Skin no rashes or lesions noted Psych mental status grossly normal Assessment & Plan Assessment/Plan (1) Elevated troponin: PLAN: The patient does have an elevated high-sensitivity troponin I level. This may be secondary to her hypertensive urgency. She has undergone subsequent follow-up evaluation. This included ECGs which have demonstrated dynamic T wave changes. These may be related to her hypertension, however, underlying CAD with myocardial ischemia cannot be excluded. She has had an echocardiogram. The results are as noted. It does raise concern of an underlying cardiomyopathy. This may be compatible with a hypertension related cardiomyopathy, however underlying CAD cannot be excluded, an atypical Takotsubo syndrome may not necessarily be able to be excluded, and as noted by the echocardiographic report underlying amyloid may not necessarily be able to be excluded (although the patient does not have a classic ECG for this with respect to low voltage/low amplitude findings). At the present time the patient will continue medical therapy. She has been recommended for further evaluation with diagnostic cardiac catheterization. The procedure and risk were discussed with her. She was agreeable to this approach. This procedures to be performed by Dr. Purcell of interventional cardiology. He was introduced to the patient. (2) Hypertensive urgency: PLAN: She has been found to have evidence of a hypertensive urgency. It is unclear as to how long her blood pressure has been elevated. Her hypertension may be the etiology of her symptoms and her objective findings. Her blood pressure does appear to be coming under better control. At the present time she will need continued medical management. (3) Cardiomyopathy: PLAN: Her echocardiogram does suggest an underlying cardiomyopathy. The potential etiologies are as noted above. At the moment she will continue medical therapy. She will proceed with further invasive evaluation. Over time she may need continued noncardiac evaluation as well especially if there are any ongoing concerns of noncardiac etiologies such as amyloid. This may need to be further addressed by hematology/oncology in the future. (4) Pleural effusion: PLAN: She does have a pleural effusion. This may be secondary to the effects of hypertension on her cardiopulmonary system. This may be secondary to the subsequent effects on her left ventricular systolic function with findings of an underlying cardiomyopathy. She will need to continue evaluation care as noted above. It is reasonable to continue medical therapy including consideration for diuretic therapy. Addt'l Comments The patient's case has been discussed and reviewed with the patient as well as with Dr. Purcell of interventional cardiology. The aforementioned information has also been conveyed to the [facility] hospitalist team. This note was generated using a voice recognition system and there may be incorrect words, spelling or punctuation that were not noted when reviewing the office note prior to saving. Procedure Criteria Type of Procedure Procedure Type: Elective Elective Risks - COVID COVID Risk Discussion: The surgeon/proceduralist and patient have discussed in detail the risk of exposure to and/or potential harm posed by the COVID-19 virus with having a surgery/procedure at this time versus the risk of delaying the surgery/procedure. It is not possible to know either the risk of delaying the surgery or procedure or chance of getting an infection with perfect accuracy, but a joint decision was made between the patient and the surgeon/proceduralist to proceed at this time with the scheduled surgery/procedure as indicated on the consent form.
[2022-09-01] MEDS: Furosemide 20 MG/2 ML VIAL IV (14:54)
--- NOTE | 2022-09-01 17:06 | CASEMGMT ---
Insurance review for hospitals In-network with [facility] PPO Insurance if transfer is recommended is as follows: [facility], [place], [facility], [facility], [facility], [facility], [facility] ([facility]), and . Zaki BSN RN CM
[2022-09-01] MEDS: Atorvastatin Calcium 20 MG Tablet PO (21:21)
[2022-09-02] VITALS (13 sets, daily range): BP systolic 98–123; BP diastolic 64–80; PULSE 68–84; RESP 16–20; TEMP 36.4–36.8; O2SAT 87–96
[2022-09-02] MEDS: Carvedilol 3.125 MG TABLET PO (06:40)
[2022-09-02] MEDS: amLODIPine 5 MG Tablet PO (06:40)
[2022-09-02] MEDS: Lisinopril 20 MG Tablet PO (06:40)
[2022-09-02] MEDS: Aspirin E.C. 81 MG Tablet PO (06:40)
[2022-09-02 08:02] LABS: Anion Gap 8 (5-15); BUN 31 mg/dL (7-18); BUN/Creat Ratio 23.8 RATIO (10-20); Calcium,Total 8.9 mg/dL (8.5-10.1); Chloride 100 mmol/L (98-107); EST Glomerular Filtration Rate 46 mL/min (>60); Est Glom Filt Rate - Afr Amer 56 mL/min (>60); Estimated Creatinine Clearance 41.86 ml/min; Glucose 120 mg/dL (74-106); Potassium 3.8 mmol/L (3.5-5.1); Sodium Level 136 mmol/L (136-145); Troponin-I HS 125 pg/mL (3.0-54.0)
[2022-09-02] MEDS: 0.9% Normal Saline 1,000 ML 15 ML IV (08:48)
--- NOTE | 2022-09-02 10:07 | PCM.PN.HOSP ---
Subjective Subjective Doing well, no issues overnight, chest pain has resolved as has shortness of breath however her echo demonstrated global dysfunction so we will plan for heart cath today EF of 30% Objective Data Objective Data Vital Signs: Vital Signs Temp Pulse Resp BP Pulse Ox O2 Del Method 97.9 F 72 18 108/74 95 Room Air 09/02/22 06:39 09/02/22 07:49 09/02/22 06:39 09/02/22 06:39 09/02/22 06:39 09/02/22 08:38 Oxygen Delivery Method Room Air Weight: 192 lb 0.009 oz Body Mass Index (BMI) 35.1 Intake & Output: Intake and Output for Last 24 Hours 09/01/22 09/02/22 09/03/22 03:59 03:59 03:59 Intake Total 1100 / 1100 Balance 1100 / 1100 Lab / Micro Data Result Diagrams: 08/31/22 15:14 09/02/22 06:20 Labs: Laboratory Results - last 24 hr 09/02/22 06:20: Sodium 136, Potassium 3.8, Chloride 100, Carbon Dioxide 28.0, Anion Gap 8, BUN 31 H, Creatinine 1.30 H, Estim Creat Clear Calc 41.86, Est GFR (MDRD) Af Amer 56 L, Est GFR (MDRD) Non-Af 46 L, BUN/Creatinine Ratio 23.8 H, Glucose 120 H, Calcium 8.9, Troponin I High Sens 125 H* Micro: Microbiology 09/01/22 00:15 Mucosa - Nasopharyngeal Respiratory Panel (PCR) - Final 08/31/22 19:55 Nasal Secretion SARS-CoV-2 Antigen (Rapid) - Final Radiography Diagnostic Testing: Radiology Impression Echocardiogram 08/31/22 18:20 Interpretation Summary The study was technically difficult. Contrast injection was performed. Severely dilated left ventricle. Severe global left ventricular systolic dysfunction. The estimated ejection fraction is 30 %. The left atrium is mildly enlarged. Mild diffuse mitral valve thickening. Mild papillary muscle dysfunction of the mitral valve. Moderate (2+) mitral valve insufficiency. Trivial tricuspid valve insufficiency. Trivial pericardial effusion. There are no echocardiographic indications of cardiac tamponade. Diastolic function is indeterminate. Comment: 2D echocardiographic images of the left ventricle suggest global hypokinesis with the LV apex potentially compatible with an element of apical sparing with only mild hypokinesis suggestive of but not diagnostic of a diagnosis which may include amyloidosis. Ordering Physician: Lonnie Oakley Referring Physician: No PCP Performed By: Rhys Bolton RCS Rhythm Strip Rhythm Strip: Sinus Tach Rate: 105 Ectopy: None Physical Exam Narrative General: Alert, Oriented x3, Cooperative, No apparent distress HEENT: Atraumatic, PERRLA, EOMI, Normocephalic Oral: Moist Mucosa Neck: Supple, No JVD Lungs: Clear to auscultation, Normal air movement, No rhonchi, No wheeze, No rales Cardiovascular: Regular rate, Regular Rhythm, Normal S1, Normal S2, No murmurs Abdomen: Soft, Non Tender, Non-Distended, No Hepato-splenomegaly Extremities: No edema, Capillary Refill Less than 3 Seconds Skin: No rashes, No breakdown Musculoskeletal: No Tenderness to Palpation of Joints or Extremities Neurological: Cranial nerves II-XII grossly intact, Motor Exam 5/5 strength throughout, Sensory exam intact to light touch and pain Psych/Mental Status: Normal Affect, Appropriate Assessment & Plan Assessment/Plan (1) Hypertensive urgency: PLAN: Suspect patient has had longstanding uncontrolled blood pressure. Patient does not see physicians regularly Blood pressures appear more controlled with the Coreg as well as hydrochlorothiazide, lisinopril, Norvasc test was negative She did have a slight increase in her renal function this is likely due to volume overload and her poor cardiac function will hold off on any IV fluids at this time and await the heart cath she may benefit from a little bit of Lasix, but will discuss with cardiology (2) Elevated troponin: PLAN: Suspect cardiac strain due to the hypertensive urgency Consult cardiology Echo oh with reduced EF so plan for heart cath today (3) ST segment changes on electrocardiogram: PLAN: Most likely due to LVH (4) Pleural effusion: PLAN: Most likely cardiac in nature Doubt infectious or cancerous No need for thoracentesis at this time but should be followed up as outpatient PLAN: Plan DVT: Lovenox Charges/Coding Visit Charges Inpatient E&M: 67354 Subs Hosp L2
--- NOTE | 2022-09-02 10:34 | PRO.PCM_ITS ---
Procedure Report Date of Procedure: 09/02/22 Procedure performed; Left heart catheterization 1. Moderate sedation 2. Selective left coronary angiography 3. Selective right coronary angiography 4. Measurement of LVEDP 5. Left ventriculogram 6. Placement of TR band to close the right radial artery arteriotomy site. Consent; Risk and benefit of procedure explained in detail patient treated to proceed informed consent obtained Preprocedure diagnosis. 47-year-old patient with history of hypertension and hypertensive cardiovascular disease She has severely dilated left ventricle by echocardiogram with severe global LV hypokinesia The estimated ejection fraction of 30% as well she has a mildly dilated left atrium. Based on her clinical presentation and she had symptoms of chest pain and she had mild elevation of cardiac biomarkers with high sensitive troponin she is scheduled for cardiac catheterization Cardiac cath indication and risk explained in detail to the patient she elected to proceed informed consent obtained Diagnostic catheter used; 1. 5 Anguillan JL 3.5 2. 5 [place]gu[place]an JR4 3. 5 Anguillan pigtail catheter. Access; Right radial artery approach 6 Anguillan sheath placed in the right radial artery A cocktail of verapamil, heparin as well as nitroglycerin was given through the sheath. We proceed under fluoroscopic guidance with the 5 Anguillan JL 4 diagnostic catheter advanced sending aorta cannulated the left main without difficulty Multiple views of the left cholecystomy were obtained Following this under fluoroscopic guidance catheter exchanged for 5 [place]gu[place]an JR4 and selective angiography right coronary artery obtained Following this catheter exchanged for 5 [facility]an pigtail [facility] valve placed in the mid left ventricle Left ventriculogram there is 30 degree GUZMAN projection Following this cholangiography were studied. Findings; Hemodynamic LVEDP measured within normal 50 mmHg LV dilatation, moderate to severe Ejection fraction in the range of 35-40% with global LV hypokinesia. No systolic gradient across aortic valve. No mitral regurgitation noted Finding of coronary angiography; 1. Left main coronary artery large vessel normal angiographically, bifurcating into left anterior descending and left circumflex 2. Left anterior descending is a large vessel with abundant septal branches LAD reach all the way to the apex Angiographically there is no significant atherosclerosis of the left anterior descending artery 3. Left circumflex moderate-sized vessel and normal to graphically 4. RCA large dominant normal angiographically Conclusion and recommendations; 1. This patient has dilated LV with reduced LV systolic function and global LV hypokinesia 2. Patient has hypertensive cardiovascular disease 3. Normal coronary arteries 4. We will continue medical therapy, patient is on carvedilol, will DC lisinopril and add Entresto and continue on Norvasc for blood pressure control. 5. 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 Liban Purcell MD,FACC,[facility]
--- NOTE | 2022-09-02 10:42 | PCM.PN.CARD ---
Documented by User: ALBERTO Welch 09/02/22 11:05 Subjective Subjective The patient is awake and alert. She states she does feel better today. Objective Data Vital Signs: Vital Signs Temp Pulse Resp BP Pulse Ox O2 Del Method 97.9 F 70 16 106/72 95 Room Air 09/02/22 10:40 09/02/22 10:40 09/02/22 10:40 09/02/22 10:40 09/02/22 10:40 09/02/22 10:40 Oxygen Delivery Method Room Air Weight: 192 lb 0.009 oz Body Mass Index (BMI) 35.1 Intake & Output: Intake and Output for Last 24 Hours 08/31/22 09/01/22 09/02/22 23:59 23:59 23:59 Intake Total 1100 / 1100 Balance 1100 / 1100 Lab / Micro Data Result Diagrams: 08/31/22 15:14 09/02/22 06:20 Labs: Laboratory Results - last 24 hr 09/02/22 06:20: Sodium 136, Potassium 3.8, Chloride 100, Carbon Dioxide 28.0, Anion Gap 8, BUN 31 H, Creatinine 1.30 H, Estim Creat Clear Calc 41.86, Est GFR (MDRD) Af Amer 56 L, Est GFR (MDRD) Non-Af 46 L, BUN/Creatinine Ratio 23.8 H, Glucose 120 H, Calcium 8.9, Troponin I High Sens 125 H* Micro: Microbiology 09/01/22 00:15 Mucosa - Nasopharyngeal Respiratory Panel (PCR) - Final Rhythm Strip Rhythm Strip: Sinus Tach Rate: 105 Ectopy: None Cardiology Labs/Tests 09/02/22 06:20: Sodium 136, Potassium 3.8, Chloride 100, Carbon Dioxide 28.0, Anion Gap 8, BUN 31 H, Creatinine 1.30 H, Est GFR (MDRD) Af Amer 56 L, Est GFR (MDRD) Non-Af 46 L, BUN/Creatinine Ratio 23.8 H, Glucose 120 H, Calcium 8.9 Rhythm: SR Cardiac Cath:Normal coronary arteries with global dilated LV Physical Exam Const alert, oriented x3 and no apparent distress Orientation / Consciousness: awake HEENT normocephalic, head/scalp atraumatic, hearing grossly normal bilaterally and moist oral mucous membranes Eyes PERRL, EOMs intact bilaterally, conjunctivae normal and no scleral icterus Neck full ROM, supple and no JVD Carotids: normal carotid upstroke Resp normal respiratory effort Auscultation: breath sounds absent right (Improved compared to yesterday) Cardio regular rate, regular rhythm, S1 normal heart sound and S2 normal heart sound GI normal to inspection, nondistended, normoactive bowel sounds Extremity no pedal edema Skin Skin Narrative: Diffuse Multiple petechiate over body with small scabs Psych mental status grossly normal Assessment & Plan Assessment/Plan (1) Elevated troponin: PLAN: The patient had an elevated high-sensitivity troponin I level. This may be secondary to her hypertensive urgency. She did undergo a diagnostic heart cath today which demonstrated normal coronary arteries. (2) Hypertensive urgency: PLAN: She has been found to have evidence of a hypertensive urgency. It is better controlled. Will continue with Coreg, recommend switching her Lisinopril to entresto and continuing Norvasc. (3) Cardiomyopathy: PLAN: Will continue to maximize her medications. Will continue with coreg, switch lisinopril to entresto. On an OP basis may add spirolactonce and an SGLT2. As an OP will need to consider noncardiac etiologies such as amyloid. (4) Pleural effusion: PLAN: She does have a pleural effusion. This may be secondary to the effects of hypertension on her cardiopulmonary system.This may be secondary to the subsequent effects on her left ventricular systolic function with findings of an underlying cardiomyopathy. In the future may need to consider lasix as an OP basis. PLAN: Plan from a cardiac standpoint, feel that she can be discharged home. Documented by User: Dr. Liban Purcell MD 09/02/22 18:31 Lab / Micro Data Result Diagrams: 08/31/22 15:14 09/02/22 06:20 Assessment & Plan Assessment/Plan (1) Elevated troponin: (2) Hypertensive urgency: (3) Cardiomyopathy: (4) Pleural effusion: PLAN: Plan from a cardiac standpoint, feel that she can be discharged home. Independently reviewed all the medical record of this patient including the EKG and echocardiogram current cardiac evaluation in the hospital As well she underwent cardiac catheterization today Revealed normal coronary arteries with reduced LV stock function and global LV hypokinesia Ejection fraction in the range of 35-40% Discussed cardiac medication in detail with the patient and plan will be to follow-up with the primary utilization management nurse Dr. Oakley Blood pressure better controlled on the current medication.
--- NOTE | 2022-09-02 11:09 | DCINST_ITS ---
Discharge Instructions Diet Discharge Diet: Low fat / Low cholesterol Activity Discharge Activity: Return to Normal Activity Dressing / Incision Call your doctor if you observe: Fever of 101 or Higher, Shortness of breath, Dizziness, Fainting spells, Swelling in the ankles, Chest pain and Increased palpitations (irregular heartbeat) Follow Up Care Test Results: Test results from this visit will be discussed in further detail at your follow- up appointment, if applicable. Discharge Plan Admission Admit Date/Time: 08/31/22 17:35 Attending Provider: Alejandro Guido Primary Care Provider: Care Physician,No Primary Consulting Providers: Lonnie Oakley ; Stan Gonsalez Instructions Additional Instructions / Restrictions: Obtain a BMP as an outpatient to monitor renal function Discharge Orders/Prescriptions Prescriptions: New atorvastatin 20 mg Tablet 20 mg PO QHS Qty: 30 0RF amlodipine 5 mg Tablet 5 mg PO DAILY Qty: 30 0RF aspirin 81 mg Tablet,Delayed Release (Dr/Ec) 81 mg PO BREAKFAST Qty: 30 0RF carvedilol 3.125 mg Tablet 3.125 mg PO BID Qty: 60 0RF Entresto 24-26 mg tablet 1 tab PO BID Qty: 60 0RF Continued norgestimate-ethinyl estradiol 0.25-35 mg-mcg tablet 1 tab PO DAILY cetirizine 5 mg Tablet 10 mg PO DAILY PRN (Reason: ALLERGIES) Referrals / Follow Up: Lonnie Oakley MD [Med Staff - Active Staff] - Within 1 Month Care Physician,No Primary [Primary Care Provider] - Within 1 Week Disposition Disposition (needs filled in before D/C Order can be placed): Home, Self Care
--- NOTE | 2022-09-02 11:16 | DS.PCM_ITS ---
Providers Date of Admission: 08/31/22 Primary Care Physician: Precious Primary Care Phys Consultations 08/31/22 19:45 Consult: Cardiology Routine Consulting Provider: Lonnie Oakley Reason for Consult: elevated troponin EMERGENT Consult: No MD Notified: Yes Date Notified: 08/31/22 Time Notified: 17:42 Method of Notification: Verbal Reason For Visit: ELEVATED TROPONINS. HTN URGENCY Diagnosis Discharge Diagnosis (1) Elevated troponin: Status: Acute Code(s): R77.8 - Other specified abnormalities of plasma proteins Plan: Suspect cardiac strain due to the hypertensive urgency Consult cardiology Echo oh with reduced EF so plan for heart cath today (2) Hypertensive urgency: Status: Acute Code(s): I16.0 - Hypertensive urgency Plan: Suspect patient has had longstanding uncontrolled blood pressure. Patient does not see physicians regularly Blood pressures appear more controlled with the Coreg as well as hydro chlorothiazide, lisinopril, Norvasc test was negative She did have a slight increase in her renal function this is likely due to volume overload and her poor cardiac function will hold off on any IV fluids at this time and await the heart cath she may benefit from a little bit of Lasix, but will discuss with cardiology (3) Cardiomyopathy: Status: Acute Code(s): I42.9 - Cardiomyopathy, unspecified (4) Pleural effusion: Status: Acute Code(s): J90 - Pleural effusion, not elsewhere classified Plan: Most likely cardiac in nature Doubt infectious or cancerous No need for thoracentesis at this time but should be followed up as outpatient Plan DVT: Lovenox Medications at Discharge Home Medications cetirizine 5 mg tablet 10 mg PO DAILY PRN ALLERGIES 08/31/22 norgestimate 0.25 mg-ethinyl estradiol 35 mcg tablet 1 tab PO DAILY 08/31/22 amlodipine 5 mg tablet 5 mg PO DAILY #30 tabs 09/02/22 aspirin 81 mg tablet,delayed release 81 mg PO BREAKFAST #30 tabs 09/02/22 atorvastatin 20 mg tablet 20 mg PO QHS #30 tabs 09/02/22 carvedilol 3.125 mg tablet 3.125 mg PO BID #60 tabs 09/02/22 sacubitril 24 mg-valsartan 26 mg tablet (Entresto) 1 tab PO BID #60 tabs 09/02/22 Hospital Course Operations None Procedures None Summary of Care Provided Minutes Spent on Discharge: 42 Hospital Course: Per HPI: CANDIDA GUZMAN, is a 47 F who presents with shortness of breath.? Patient is having dyspnea on exertion over the past couple days.? Denies any chest pain or chest pressure.? Had been ill about 3 weeks ago and symptoms did resolve but only to get worse over the past few days.? So she presented to the emergency room for evaluation.? Patient was noted to have a blood pressure of 214/127 in the ED.? Patient did receive hydralazine which did improve her blood pressure down to 160/103.? Patient has no known history of hypertension though she does not see physicians at all regularly.? Troponins were elevated in the 140s.? Patient did undergo CTA of the chest that did not show any PE but did show a small right pleural effusion. Hospital Course: 1. Hypertensive urgency with an elevated troponin and a pleural effusion? 47-year-old female presented to the hospital with shortness of breath and some dyspnea on exertion with a little bit of chest pain and pressure. This has all resolved with improvement in her blood pressure, when she first came in her systolic blood pressures were over 200. She has poor outpatient follow-up, it was discussed with her that she needs to be more consistent seeing her primary care physician. 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 I discussed with her the plan for discharge today and she expressed understanding of the risk and benefits of going home and would like to go home today. She will be discharged on amlodipine, Coreg, aspirin, Lipitor, and Entresto. I do recommend she follow-up as an outpatient to monitor her renal function and she needs to follow-up with cardiology for dose adjustment on her Entresto. Weight / BMI Weight Weight: 192 lb 0.009 oz Body Mass Index (BMI) 35.1 ABG / Lab / Microbiology Data Result Diagrams: 08/31/22 15:14 09/02/22 06:20 Laboratory: Laboratory Results - last 24 hr 09/02/22 06:20: Sodium 136, Potassium 3.8, Chloride 100, Carbon Dioxide 28.0, Anion Gap 8, BUN 31 H, Creatinine 1.30 H, Estim Creat Clear Calc 41.86, Est GFR (MDRD) Af Amer 56 L, Est GFR (MDRD) Non-Af 46 L, BUN/Creatinine Ratio 23.8 H, Glucose 120 H, Calcium 8.9, Troponin I High Sens 125 H* Microbiology: Microbiology 09/01/22 00:15 Mucosa - Nasopharyngeal Respiratory Panel (PCR) - Final 08/31/22 19:55 Nasal Secretion SARS-CoV-2 Antigen (Rapid) - Final D/C Instructions Discharge Diet: Low fat / Low cholesterol Call your doctor if you observe: Fever of 101 or Higher, Shortness of breath, Dizziness, Fainting spells, Swelling in the ankles, Chest pain and Increased palpitations (irregular heartbeat) Meaningful Use Info Meaningful Use Diagnoses (Choose all that apply): None applicable Discharge Plan Admission Admit Date/Time: 08/31/22 17:35 Attending Provider: Alejandro Guido Primary Care Provider: Care Physician,No Primary Consulting Providers: Lonnie Oakley ; Stan Gonsalez Instructions Additional Instructions / Restrictions: Obtain a BMP as an outpatient to monitor renal function Discharge Orders/Prescriptions Prescriptions: New atorvastatin 20 mg Tablet 20 mg PO QHS Qty: 30 0RF amlodipine 5 mg Tablet 5 mg PO DAILY Qty: 30 0RF aspirin 81 mg Tablet,Delayed Release (Dr/Ec) 81 mg PO BREAKFAST Qty: 30 0RF carvedilol 3.125 mg Tablet 3.125 mg PO BID Qty: 60 0RF Entresto 24-26 mg tablet 1 tab PO BID Qty: 60 0RF Continued norgestimate-ethinyl estradiol 0.25-35 mg-mcg tablet 1 tab PO DAILY cetirizine 5 mg Tablet 10 mg PO DAILY PRN (Reason: ALLERGIES) Referrals / Follow Up: Lonnie Oakley MD [Med Staff - Active Staff] - Within 1 Month Care Physician,No Primary [Primary Care Provider] - Within 1 Week Disposition Disposition (needs filled in before D/C Order can be placed): Home, Self Care Charges/Coding Visit Charges Inpatient E&M: [id number] Disch Hosp
[2022-09-02] MEDS: hydroCHLOROthiazide 25 MG Tablet PO (12:18)
--- NOTE | 2022-09-02 13:40 | CASEMGMT ---
YVONNE WYNN NOTE: Pt being discharged today and Entresto has been e-scribed to [facility]. Call to Joe @ pharmacy. He states he applied the 30-day savings card for Entresto and will be covered. YVONNE WYNN to room and she was made aware of above. She was instructed to discuss Entresto with her PCP, if refills are not affordable, for possible other options. She voices understanding and denies having other discharge planning needs or concerns. Zaki GUSTAFSON RN, CM
== END 2022-09-02 15:07 | disposition home or self-care (01) | DRG 287 ==
LOC: ED 17:12 → PCU 17:56
PROVIDERS: Internal Medicine Cardiovascular Disease; Emergency Provider Emergency Medicine; Visit Provider Family Medicine
DX: I16.0 Hypertensive urgency (principal); J90 Pleural effusion, not elsewhere classified; I11.9 Hypertensive heart disease without heart failure; I25.10 Atherosclerotic heart disease of native coronary artery without angina pectoris; R77.8 Other specified abnormalities of plasma proteins; Z28.310 Unvaccinated for COVID-19; Z20.822 Contact with and (suspected) exposure to COVID-19; Z79.82 Long term (current) use of aspirin; Z79.899 Other long term (current) drug therapy
CPT/HCPCS: 36415; 71046; 71275; 80048; 80061; 80076; 81001; 83880; 84443; 84484; 84703; 85025; 85379; 87633; 87811; 93005; 93306; 93458; 99152; 99153; 99285; J7030; Q9957; Q9967; A4216; C1769; C1894; C8929; J1940

== ENCOUNTER → 2022-11-16 | Outpatient (CLI) | payer OTHER, SELFPAY ==
--- NOTE | 2022-11-16 07:37 | CT_ITS ---
STUDY: CT CHEST WITH CONTRAST REASON FOR EXAM: Female, 47 years old. VOCAL CORD PARALYSIS RADIATION DOSAGE (If Supplied By Facility): CTDIvol = ( 13.37 ) mGy, DLP = ( 667.34 ) mGycm TECHNIQUE: Transaxial imaging was performed following intravenous administration of IV 100mL Isovue-300. Multiplanar coronal and sagittal images were reformatted. Individualized dose optimization techniques were used for this CT. COMPARISON: Comparison is made with prior CTA of the chest dated August 31, 2022. FINDINGS: CHEST Small benign-appearing bilateral axillary lymph nodes. The lungs are normal. The previously seen right pleural effusion as cleared. The previously seen left lower lobe infiltrate has cleared as well. Normal heart and pericardium. Normal mediastinum. Normal hilar regions. Normal unenhanced pulmonary arteries. Normal aorta arch and descending thoracic aorta. There are mild degenerative changes of the thoracic spine. There is no demonstrated abnormality of the visualized upper abdomen. CT/Chest WITH Contrast IMPRESSION: Normal enhanced CT chest examination. Electronically Signed: Kobly Giraldo MD at 16:18 EST ,
[2022-11-16 08:05] LABS: CREATININE FINGERSTICK < 0.9 mg/dL (0.55-1.02); EGFR FINGERSTICK > 60.0000 mL/min (>60)
== END | disposition home or self-care (01) ==
LOC: CT 07:35
PROVIDERS: Visit Provider Otolaryngology Otolaryngology/Facial Plastic Surgery
DX: J38.01 Paralysis of vocal cords and larynx, unilateral (principal)
CPT/HCPCS: 71260; Q9967; A4216